=== PATIENT | male | born 1955 | race Caucasian/White ===

== ENCOUNTER 2019-11-24 10:33 | Inpatient (IN) ==
[2019-11-24] MEDS ORDERED: XOPENEX NEB INH ONE (11:06)
[2019-11-24] MEDS ORDERED: PULMICORT INH ONE (11:06)
[2019-11-24] MEDS ORDERED: NS 1,000 ML IV ONE (11:07)
[2019-11-24] MEDS ORDERED: NS 1,000 ML ONE ×2 (11:11→16:08)
[2019-11-24] MEDS ORDERED: NS NEB INH SCH (11:15)
--- NOTE | 2019-11-24 11:15 | PROVIDER DOCUMENTATION ---
HPI-Respiratory General - General Chief Complaint: B/P Problems Stated Complaint: SOB Time Seen by Provider: 11/24/19 11:01 Source: patient, family (daughter at bedside) Allergies/Adverse Reactions: Patient Allergies Allergy/AdvReac Type Severity Reaction Status Date / Time No Known Allergies Allergy Verified 11/24/19 11:26 - History of Present Illness-Resp Nature of Presenting Problem: 64 YO M pmh for COPD presents with c/o SOB x 1 week, worse in the last day, with associated low blood pressure. Pt states he normally drinks alcohol everyday but has not in the past week. He does not do breathing tx at home. He has not taken his BP meds in the past few days because of low BP. Quality of Pain: reports: none Onset/Duration: reports: 24 hours ago Timing: reports: still present, getting worse Context: denies: recent foreign travel Exposure: reports: unknown cause Similar Symptoms Previously?: Yes Recently seen or treated by another doctor?: No Review of Systems - Adult - REVIEW OF SYSTEMS - ADULT Constitutional: denies: chills, fever Eyes: reports: no symptoms reported Ears, Nose, Mouth & Throat: reports: no symptoms reported Cardiovascular: reports: poor circulation. denies: chest pain, edema, palpitations Respiratory: reports: shortness of breath. denies: pleurisy, wheezing Gastrointestinal: reports: no symptoms reported Genitourinary: reports: no symptoms reported Integumentary: reports: other (bruising) Neurological: reports: no symptoms reported Psychiatric: reports: no symptoms reported Past History - Adult - PAST MEDICAL HISTORY-ADULT Review of Records: reports: Old Records Reviewed Cardiovascular: reports: HTN Respiratory: reports: COPD Gastrointestinal: reports: denies history Genitourinary: reports: denies history - PRIOR SURGERIES/PROCEDURES Surgical/Procedure History: denies: recent surgery - FAMILY HISTORY Family History: reviewed, not pertinent - SOCIAL HISTORY Smoking: cigarettes Substance Use: alcohol Alcohol Use Frequency: every day Physical Exam-General - PHYSICAL EXAM-ADULT Initial Vital Signs Reviewed: Yes - CONSTITUTIONAL General Appearance: alert, moderate distress (respiratory distress) - EYES Eyes: scleral icterus - HEAD, EARS, NOSE, MOUTH & THROAT HENMT: other (dry mucous membranes) - NECK Neck: full range of motion, supple, normal inspection - RESPIRATORY Respiratory: respiratory distress. negative: crackles, rales, rhonchi, wheezing - CARDIOVASCULAR Cardiovascular: tachycardia - GASTROINTESTINAL (ABDOMEN) Abdominal Exam: soft - MUSCULOSKELETAL Back Exam: no CVA tenderness Extremity: no pedal edema, pelvis stable - SKIN Integumentary: ecchymosis (extensive) - NEUROLOGIC Neurologic: grossly normal - PSYCHIATRIC Psych/Mental Status: oriented x 3 - HEART Score HEART Score: History: Slightly Suspicious HEART Score: ECG: Normal HEART Score: Age: 45-65 Years HEART Score: Risk Factors for Atherosclerotic Disease: 1 or 2 Risk Factors HEART Score: Troponin: < or = Normal Limit Total HEART Score:: 2 Progress - PLAN OF CARE/RESULTS Progress/Plan/Lab Results: Vital Signs - 8 hr 11/24/19 10:47 11/24/19 11:36 Temperature 97.8 F Pulse Rate 93 H 107 H Respiratory Rate 20 18 Blood Pressure 63/49 O2 Sat by Pulse Oximetry 100 97 11/24/19 12:26 Stool Occult Blood (AMBER) - Final Stool 11/24/19 11:53 Influenza Screen - Final Nasopharyngeal Laboratory Results - last 24 hr 11/24/19 11/24/19 11/24/19 11:03 11:03 11:03 WBC 11.51 H RBC 2.27 L Hgb 7.0 L Hct 22.0 L MCV 96.9 MCH 30.8 MCHC 31.8 L RDW Std Deviation 16.8 H Plt Count 452 H MPV 10.0 Immature Gran % (Auto) 0.3 Neut % (Auto) 64.9 Lymph % (Auto) 25.3 [place] % (Auto) 5.6 Eos % (Auto) 3.3 Baso % (Auto) 0.6 Immature Gran # (Auto) 0.03 Neut # (Auto) 7.47 H Lymph # (Auto) 2.91 [place] # (Auto) 0.65 H Eos # (Auto) 0.38 Baso # (Auto) 0.07 PT 14.9 INR 1.15 PTT (Actin FS) 32.0 D-Dimer, Quantitative Sodium Potassium Chloride Carbon Dioxide Anion Gap BUN Creatinine Estimated GFR/1.73 m2 BUN/Creatinine Ratio Glucose Calculated Osmolality Calcium Magnesium Total Bilirubin AST ALT Alkaline Phosphatase Troponin T High Sens Dnk-V-Eyvafmlsvxy Pept 269 H Total Protein Albumin Globulin Albumin/Globulin Ratio TSH 11/24/19 11/24/19 11/24/19 11:03 11:03 11:03 WBC RBC Hgb Hct MCV MCH MCHC RDW Std Deviation Plt Count MPV Immature Gran % (Auto) Neut % (Auto) Lymph % (Auto) [place] % (Auto) Eos % (Auto) Baso % (Auto) Immature Gran # (Auto) Neut # (Auto) Lymph # (Auto) [place] # (Auto) Eos # (Auto) Baso # (Auto) PT INR PTT (Actin FS) D-Dimer, Quantitative 1.97 H Sodium 127 L Potassium 4.7 Chloride 94 L Carbon Dioxide 13 L Anion Gap 20 BUN 19 Creatinine 1.1 Estimated GFR/1.73 m2 > 60 BUN/Creatinine Ratio 17 Glucose 119 H Calculated Osmolality 259 Calcium 8.7 L Magnesium Total Bilirubin 1.59 H AST 9 L ALT < 5 L Alkaline Phosphatase 84 Troponin T High Sens 15 Nxq-A-Ibeczsrginw Pept Total Protein 5.7 L Albumin 3.1 L Globulin 2.6 Albumin/Globulin Ratio 1.2 TSH 11/24/19 11/24/19 11:03 11:03 WBC RBC Hgb Hct MCV MCH MCHC RDW Std Deviation Plt Count MPV Immature Gran % (Auto) Neut % (Auto) Lymph % (Auto) [place] % (Auto) Eos % (Auto) Baso % (Auto) Immature Gran # (Auto) Neut # (Auto) Lymph # (Auto) [place] # (Auto) Eos # (Auto) Baso # (Auto) PT INR PTT (Actin FS) D-Dimer, Quantitative Sodium Potassium Chloride Carbon Dioxide Anion Gap BUN Creatinine Estimated GFR/1.73 m2 BUN/Creatinine Ratio Glucose Calculated Osmolality Calcium Magnesium 2.1 Total Bilirubin AST ALT Alkaline Phosphatase Troponin T High Sens Cpm-B-Cibckjwmqtx Pept Total Protein Albumin Globulin Albumin/Globulin Ratio TSH 1.36 Orders Category Date Time Status Cardiac Monitoring DIRECTED Care 11/24/19 11:08 Active Saline Loc NOW Care 11/24/19 11:07 Active CHEST-1 VIEW [RAD] Stat Exams 11/24/19 11:15 Completed CBC WITH ELECTRONIC DIFF [HEME] Stat Lab 11/24/19 11:03 Completed COMPREHENSIVE METABOLIC PANEL [CHEM] Stat Lab 11/24/19 11:03 Completed D-DIMER [COAG] Stat Lab 11/24/19 11:03 Completed INFLUENZA SCREEN A/B Stat Lab 11/24/19 11:53 Completed MAGNESIUM [CHEM] Stat Lab 11/24/19 11:03 Completed OCCULT BLOOD SCREENING [STOOL] Stat Lab 11/24/19 12:26 Completed PRBC [LRPC (RED CELLS)] [BBK] Stat Lab 11/24/19 13:09 Uncollected PRO B-NATRIURETIC PEPTIDE Stat Lab 11/24/19 11:03 Completed PROTIME WITH INR [COAG] Stat Lab 11/24/19 11:03 Completed PTT [COAG] Stat Lab 11/24/19 11:03 Completed TROPONIN T HIGH SENSITIVITY Stat Lab 11/24/19 11:03 Completed TSH Stat Lab 11/24/19 11:03 Completed TYPE & SCREEN [BBK] Stat Lab 11/24/19 11:03 Received URINALYSIS W/POSS RFLX CULT [URINALYSIS] Stat Lab 11/24/19 11:07 Uncollected 0.9% Sodium Chloride Inj [Ns] 1,000 ml Med 11/24/19 11:11 Discontinued .ROUTE As directed 0.9% Sodium Chloride Inj [Ns] 1,000 ml Med 11/24/19 11:07 Discontinued IV 999 mls/hr Budesonide [Pulmicort] Med 11/24/19 11:06 Discontinued 0.5 mg INH NOW ONE Levalbuterol Neb [Xopenex Neb] Med 11/24/19 11:06 Discontinued 1.25 mg INH NOW ONE Nicotine Patch [Nicoderm Patch] Med 11/24/19 12:57 Discontinued 21 mg TD NOW ONE Sodium Chloride 0.9% Neb [Ns Neb] Med 11/24/19 11:15 Active 5 ml INH DIRECTED Aerosol Treatments Routine Oth 11/24/19 11:06 Completed Aerosol Treatments Stat Oth 11/24/19 11:06 Completed Oxygen Device Stat Oth 11/24/19 11:08 Completed EKG [EKG] Stat Ther 11/24/19 11:07 Draft labs reviewed. pt with symptomatic anemia. no hx of low blood counts in the past, denies hematuria, hemoptysis, or melena. FOBT negative. will transfuse 1 unit PRBC and plan for admission for more workup of anemia. Pt understands and agrees with plan. He is concerned for his smoking habit. Will provide a nicotine patch. Result Diagrams: 11/24/19 11:03 11/24/19 11:03 - REASSESSMENT Reassessment #1 Time Reassessed: 11:11 Status: other (repeat BP on exam at 100s/70s.) - EKG 1 Time of EKG reading by physician:: 11:25 EKG Read and Signed by:: Simin Cortes EKG Interpretation (*Must complete 3 of following elements*): Normal Rate: 65 Rhythm: NSR [place]: normal QRS: normal [place] Interval: normal ST Wave: normal Prior EKG Comparison: no prior EKG - XRAY 1 XRAY Study: Chest Impression: Normal (CHEST-1 VIEW - 11/24/2019 INDICATION: SOB COMPARISON: 02/06/2019 FINDINGS: The lungs are normally expanded and clear. Heart size and mediastinal contours are normal. No pneumothorax or pleural effusion. IMPRESSION: Negative exam. Electronically signed by Tr Jones 11/24/2019 11:38 AM) - CONSULTS/PCP/HOSPITALIST Notification #1 *Consult/PCP/Hospitalist*: spoke with Sherry Time Discussed: 12:57 Consult Disposition: Admit Departure - Departure Date of Disposition Decision: 11/24/19 Time of Disposition Decision: 11:57 DIAGNOSIS: Anemia Disposition: ADMITTED INPATIENT 09 Certified Medical Emergency: Emergent Condition: Stable Referrals and Follow-Ups: Unruly Issa MD [Primary Care Provider] - - Critical Care Note This patient required my direct & personal management of CC.: No Attestation - Physician/ PEGGY Attestation Patient care was provided by Advanced Practice Provider:: No The physician spent face to face time with patient:: Yes Advanced Practice Provider documentation review:: Supervising physician onsite and consulted in the evaluation and care of this patient. The physician did have a face to face encounter with the patient.
--- NOTE | 2019-11-24 11:40 | Diag Imaging Result Doc PS360 ---
CHEST-1 VIEW - 11/24/2019 INDICATION: SOB COMPARISON: 02/06/2019 FINDINGS: The lungs are normally expanded and clear. Heart size and mediastinal contours are normal. No pneumothorax or pleural effusion. IMPRESSION: Negative exam. Electronically signed by Tr Jones 11/24/2019 11:38 AM
[2019-11-24 11:53] LABS: BASO# 0.07 X1000 (0.0-0.2); BASO% 0.6 % (0.0-0.8); EOS# 0.38 X1000 (0.0-0.7); EOS% 3.3 % (0.0-10.0); IMM GRAN# 0.03 X1000 (0.0-0.04); IMM GRAN% 0.3 % (0.0-0.5); LYMPH# 2.91 X1000 (1.2-3.4); LYMPH% 25.3 % (20.5-51.1); MCH 30.8 PG (27-31); MCHC 31.8 g/dL (33-37); MCV 96.9 FL (81-99); MONO# 0.65 X1000 (0.11-0.59); MONO% 5.6 % (1.7-9.3); NEUT# 7.47 X1000 (1.4-6.5); NEUT% 64.9 % (42.2-75.2); PLT 452 X1000 (130-400); RBC 2.27 XMIL (4.7-6.1); RDW 16.8 % (11.5-14.5); WBC 11.51 X1000 (4.8-10.8)
[2019-11-24 11:54] LABS: INR 1.15; PROTIME 14.9 Seconds (11.0-16.0)
--- NOTE | 2019-11-24 11:57 | EKG Report ---
Test Performed on : 11/24/2019 11:25:37 AM Test Reason : CP Blood Pressure : / mmHG Vent. Rate : 065 BPM Atrial Rate : 065 BPM P-R Int : 146 ms QRS Dur : 074 ms QT Int : 426 ms P-R-T Axes : 067 041 047 degrees QTc Int : 443 ms Normal sinus rhythm. Normal ECG No previous ECGs available Unconfirmed Result
[2019-11-24 12:20] LABS: ESTIMATED GFR > 60
[2019-11-24 12:24] LABS: AGAP 20; ALB/GLOB RATIO 1.2; ALBUMIN 3.1 g/dL (3.5-5.0); ALKALINE PHOSPHATASE 84 U/L (32-122); BUN 19 mg/dL (8-22); CALCIUM 8.7 mg/dL (8.8-10.2); CHLORIDE 94 mmol/L (98-107); COSMO 259; CREATININE 1.1 mg/dL (0.7-1.2); GLUCOSE 119 mg/dL (70-104); GOT 9 U/L (10-34); GPT < 5 U/L (10-44); POTASSIUM 4.7 mmol/L (3.5-5.1); SODIUM 127 mmol/L (136-145); TCO2 13 mmol/L (25-35); TOTAL BILIRUBIN 1.59 mg/dL (0.20-1.00); TOTAL PROTEIN 5.7 g/dL (6.3-8.3)
[2019-11-24] MEDS ORDERED: NICODERM PATCH TD ONE (12:57)
[2019-11-24] MEDS ORDERED: DUONEB (A & A) INH PRN ×2 (14:38→14:42)
[2019-11-24] MEDS ORDERED: ZOFRAN IV PRN (14:38)
[2019-11-24] MEDS ORDERED: ATIVAN IV PRN (14:40)
[2019-11-24] MEDS ORDERED: SODIUM CHLORIDE 0.9% INJ SCH ×2 (14:45)
[2019-11-24] MEDS ORDERED: PROTONIX IV SCH (14:45)
[2019-11-24] MEDS: PROTONIX IV SCH (15:09)
[2019-11-24] MEDS: NS 1,000 ML IV SCH (16:11)
[2019-11-24 16:29] LABS: IRON SATURATION 13 %; TIBC 325 ug/dL; TOTAL IRON 41 ug/dL (53-167); UNBOUND IRON 284 ug/dL (112-346)
[2019-11-24 16:45] LABS: FERRITIN 213 ng/mL (30-400)
--- NOTE | 2019-11-24 17:22 | Diag Imaging Result Doc PS360 ---
EXAM: US ABDOMEN-COMPLETE INDICATION: liver cirrhosis suspected COMPARISON: None. FINDINGS: The gallbladder appears normal with no stones, wall thickening, or pericholecystic fluid. The common bile duct is normal in diameter. Sonographic Vidal's sign was reported to be negative. The liver is grossly unremarkable. Portal venous flow is hepatopetal. The visualized pancreas is unremarkable. The proximal aorta is obscured. The remainder of the aorta and the IVC are unremarkable. The spleen is unremarkable. There is a 2.7 cm right renal cyst with a thin internal septation. The kidneys are unremarkable, otherwise. IMPRESSION: Mildly complex right renal cyst. Unremarkable abdominal ultrasound, otherwise. Electronically signed by Vik Truong 11/24/2019 5:19 PM
--- NOTE | 2019-11-24 18:40 | HISTORY AND PHYSICAL ---
PRIMARY CARE PROVIDERS: Unruly Issa. CHIEF COMPLAINT: Cannot breathe. HPI: Mr. Owens is a 64-year-old male who carries a past medical history of hypertension, COPD, tobacco use 2 packs per day is denying any regular alcohol use however, ED report states that he normally drinks alcohol every day but he has not in the past week. He told me that he has not drank alcohol in 2 months and that he was not a regular alcohol drinker and he got a little agitated at questioning his drinking. He also reports bruising to the bilateral lower extremities. He reports no falls. Bilateral calf pain. Initial workup in the ED showed blood pressures of 63/49, an hemoglobin and hematocrit of 7 and 22, a D-dimer 1.97 and a sodium of 127. He is being admitted for symptomatic anemia. We will watch him for alcohol withdrawal closely. Currently pending CTA of the thorax, abdomen and pelvis as well as many other labs for his anemia and hyponatremia. Again his occult stools is negative. He denies any hematemesis, chest pain, fever, chills except for when he 1st wakes up in the morning he states that he breaks out in a cold sweat from his chest up. PAST MEDICAL HISTORY: COPD, hypertension, tobacco, alcohol use. He has had pneumonia this time every year for the past 5 years. PAST SURGICAL HISTORY: Knee surgery. SOCIAL HISTORY: He is retired environmental services project manager 2 years ago, 2 pack per day smoker. He denies that he is an everyday alcohol drinker. He adamantly denies that he is an alcoholic. He reports his last drink was 2 months ago however his ED report states that his last drink was a week ago and he was an everyday alcohol drinker. FAMILY HISTORY: Reviewed and noncontributory. REVIEW OF SYSTEMS: Twelve-point review of systems completely negative except for those mentioned in HPI. PHYSICAL EXAMINATION: VITAL SIGNS: Temperature is 97.8 degrees, heart rate 93, respiration 20, blood pressure 63/49, O2 is 100% on room air. GENERAL: Mr. Owens is a pleasant 64-year-old gentleman who is sitting up in the bed in no acute distress. HEENT: Atraumatic, normocephalic. PERRL. NECK: Supple. Trachea midline. CARDIOVASCULAR: S1, S2 appreciated. No murmurs, gallops, rubs noted. RESPIRATORY: Lung sounds clear bilaterally. No rales, rhonchi or wheezes noted. ABDOMEN: Soft, nontender, nondistended. Positive bowel sounds 4 quads. Lower extremities negative for edema. SKIN: Warm and dry. He does have some scabs to his forearms. He also has various bruises scattered throughout his lower extremities. He reports no falls or injuries at home. NEURO: He is awake, he is alert, he is oriented. He answered all questions appropriately. DIAGNOSTIC DATA: Chest x-ray negative exam. EKG normal sinus rhythm. LABORATORY DATA: White count 11, hemoglobin and hematocrit 7 and 22, platelet count is 452,000, PTT 14, INR 1, PTT 32. D-dimer 1.97. Sodium 127, potassium 4.7, anion gap of 20, BUN 19, creatinine 1.1, blood glucose is 119, magnesium is 2.1, albumin 3.1. ASSESSMENT AND PLAN: 1. Symptomatic anemia currently running anemia profile, will treat accordingly, pending abdominal and thorax abdomen and pelvis CT. Occult stool was negative. He adamantly denies any hematemesis. He is getting 1 unit of packed red blood cells. Will keep a close eye on his hemoglobin and hematocrit, currently getting blood right now. 2. Mild hyponatremia, will do a hyponatremia workup. 3. Elevated D-dimer currently pending CTA of the chest, venous Dopplers, he did complain of some bilateral calf pain. 4. Hypotensive on arrival resolved with intravenous fluids and blood. 5. Alcohol use. Patient adamantly denied that he was an everyday alcohol drinker. He reports his last drink was 2 months ago however emergency department physician reports that he was an everyday alcohol drinker and his last drink was last week. We will watch him closely for any alcohol withdrawal or DTs. There was no family at bedside. He did get a little agitated when I was questioning him about his alcohol use. 6. Tobacco use and abuse. Patient is a 2 pack per day smoker. Continue with smoking cessation daily. 7. Chronic obstructive pulmonary disease not in exacerbation. Will continue with p.r.n. breathing treatments. 8. Hypertension initially hypotensive upon arrival, will hold his lisinopril for now. 9. Gastroesophageal reflux disease. We will continue with proton pump inhibitor. 10. Further recommendations to follow physician evaluation, pending laboratory and diagnostic data. Dictated by NGUYỄN Robertson for Ryan Obrien MD cc: Ryan Obrien MD [facility]
--- NOTE | 2019-11-24 19:10 | Diag Imaging Result Doc PS360 ---
EXAM: CT THORAX/ABD/PELVIS W/CON INDICATION: anemia, long standing smoker TECHNIQUE: This exam was performed using automated exposure control, adjustment of mA or kV according to patient size, and/or use of iterative reconstruction technique. COMPARISON: None. FINDINGS: CHEST: There is fairly advanced pulmonary emphysema with an apical predominance. There is minimal apical scarring on the left. There is trace dependent atelectasis bilaterally. The lungs are clear, otherwise. There is no pleural fluid collection and no pneumothorax. There is a calcified granuloma at the left lung base. There are calcified mediastinal lymph nodes indicating prior granulomatous disease. There is no evidence of significant mediastinal or hilar lymphadenopathy, otherwise. There is no cardiomegaly. There is no evidence of acute osseous abnormality involving the chest. ABDOMEN/PELVIS: There are calcified granulomata throughout the spleen. There is no splenomegaly. The gallbladder, liver, pancreas, and adrenal glands are unremarkable. There is a 3.2 cm cyst at the medial aspect of the right kidney with no associated enhancement. The kidneys are unremarkable, otherwise. The urinary bladder appears normal. There are prostatic calcifications. The prostate does not appear to be enlarged. There is very mild sigmoid colonic diverticulosis. There is no evidence of diverticulitis. The appendix is normal. There is no evidence of focal bowel wall thickening or bowel obstruction. The remainder of the GI tract is grossly unremarkable. No focal inflammatory changes, free abdominal gas, or free fluid is identified. There is aortoiliac atherosclerotic disease with subaneurysmal ectasia of the distal aorta measuring up to 2.6 cm in diameter. There is no significant abdominal or pelvic lymphadenopathy. There is no evidence of acute osseous abnormality. IMPRESSION: 1.Pulmonary emphysema. 2.Aortoiliac atherosclerotic disease with subaneurysmal ectasia of the distal aorta. 3.Other incidental/nonacute findings detailed above. No evidence of acute pathology involving the chest, abdomen, or pelvis. Electronically signed by Vik Truong 11/24/2019 7:08 PM
[2019-11-24 20:55] LABS: URINE SOURCE CLEAN CATCH
[2019-11-24] MEDS: FOLIC ACID PO SCH (21:00)
[2019-11-24 21:14] LABS: UR EPITHELIAL CELLS <10 /HPF (<10); URINE BACTERIA NEGATIVE /HPF; URINE RBC <10 /HPF (<10)
[2019-11-24 21:19] LABS: BILIRUBIN URINE NEGATIVE (NEGATIVE); BLOOD URINE TRACE (NEGATIVE); COLOR YELLOW; GLUCOSE URINE NEGATIVE (NEGATIVE); KETONE URINE 60 mg/dL (NEGATIVE); LEUKOCYTES URINE TRACE (NEGATIVE); NITRITE URINE NEGATIVE (NEGATIVE); PROTEIN URINE TRACE mg/dL (NEGATIVE); SP GRAVITY URINE 1.043; TURBIDITY URINE CLEAR (CLEAR); UROBILINOGEN URINE NORMAL (NORMAL)
[2019-11-24 21:23] LABS: HEMATOCRIT 23.7 % (42.0-52.0); HEMOGLOBIN 8.1 g/dL (14.0-18.0)
[2019-11-25] MEDS ORDERED: PNEUMOVAX 23 IM ONE (01:39)
[2019-11-25] MEDS: NS 1,000 ML IV SCH (01:51)
[2019-11-25] MEDS: PROTONIX IV SCH (02:04)
[2019-11-25] MEDS ORDERED: FLU VACCINE IM ONE (02:15)
[2019-11-25 02:22] LABS: HEMATOCRIT 24.7 % (42.0-52.0); HEMOGLOBIN 8.1 g/dL (14.0-18.0)
[2019-11-25 08:06] LABS: BASO# 0.01 X1000 (0.0-0.2); BASO% 0.2 % (0.0-0.8); EOS% 3.3 % (0.0-10.0); HEMATOCRIT 22.4 % (42.0-52.0); HEMOGLOBIN 7.4 g/dL (14.0-18.0); LYMPH# 1.28 X1000 (1.2-3.4); LYMPH% 21.3 % (20.5-51.1); MCV 93.7 FL (81-99); MONO# 0.38 X1000 (0.11-0.59); MONO% 6.3 % (1.7-9.3); MPV 9.9 FL (7.4-10.4); NEUT# 4.15 X1000 (1.4-6.5); NEUT% 68.9 % (42.2-75.2); PLT 349 X1000 (130-400); RBC 2.39 XMIL (4.7-6.1); RDW 16.2 % (11.5-14.5); WBC 6.02 X1000 (4.8-10.8)
[2019-11-25 08:21] LABS: RETIC% 5.53 % (0.8-2.1)
[2019-11-25 08:38] LABS: ESTIMATED GFR > 60
[2019-11-25 08:49] LABS: AGAP 15; ALBUMIN 2.7 g/dL (3.5-5.0); ALKALINE PHOSPHATASE 78 U/L (32-122); BUN 14 mg/dL (8-22); CALCIUM 8.4 mg/dL (8.8-10.2); CHLORIDE 98 mmol/L (98-107); COSMO 257; CREATININE 0.8 mg/dL (0.7-1.2); GLUCOSE 97 mg/dL (70-104); GOT 9 U/L (10-34); GPT < 5 U/L (10-44); POTASSIUM 4.2 mmol/L (3.5-5.1); SODIUM 128 mmol/L (136-145); TCO2 15 mmol/L (25-35); TOTAL BILIRUBIN 1.56 mg/dL (0.20-1.00); TOTAL PROTEIN 5.4 g/dL (6.3-8.3)
--- NOTE | 2019-11-25 09:20 | PROGRESS NOTE ---
DATE: 11/25/2019 SUBJECTIVE: Patient reports feeling better after 1 unit of blood transfused. Denies any fever or chills. OBJECTIVE: Vital Signs: Temperature 97.6 degrees, heart rate 81, respiratory rate 20, blood pressure 122/77, O2 saturation 100% on 2 L nasal cannula. General: This is a chronically ill- looking and disheveled 64-year-old male lying in bed in no acute distress. Cardiovascular: S1-S2 heard. No murmurs, gallops, or rubs. Regular rate and rhythm. Respiratory: Decreased breath sounds globally. No work of breathing. Not using accessory muscles. Abdomen: Soft. Nontender to palpation. Nondistended. Bowel sounds present. No organomegaly. Extremities: No clubbing, cyanosis, or edema. Peripheral pulses present in both legs. Neurological: Patient is alert and oriented x3. Moves 4 extremities. LABORATORY DATA: Hemoglobin was 7.4, but in the morning at 2 a.m. was 8.1. Sodium 128. Total bilirubin 1.56, iron 41. ASSESSMENT/PLAN: 1. Iron deficiency anemia. Patient has been transfused [address] of the thorax, abdomen and pelvis has been okay. No malignancy found. So at this point, we will consult Gastroenterology to see what else we can do for this patient. 2. Mild hyponatremia. Workup in progress. Will continue to monitor. 3. Alcohol use. Patient reports that he has not drank for the last month. He does not look to be in any alcohol withdrawal. We will continue to monitor. 4. Tobacco use and abuse. Patient has been advised to stop smoking and he has a nicotine patch. 5. Chronic obstructive pulmonary disease. Patient is not in an exacerbation. We will provide breathing treatments only. 6. Disposition: At this point, we will follow the lead from GI. cc: Ryan Obrien MD [facility]ITALHardik
[2019-11-25] MEDS: FOLIC ACID PO SCH (10:23)
--- NOTE | 2019-11-25 11:19 | DISCHARGE SUMMARY ---
ADMISSION DATE: 11/24/2019 DISCHARGE DATE: 11/25/2019 DISCHARGE DIAGNOSES: 1. Iron-deficiency anemia, improved. 2. Mild hyponatremia. 3. Suspected chronic obstructive pulmonary disease. 4. Tobacco use and abuse. 5. Hypertension. CONSULTATIONS: Dr. Sebas Huertas from GI. PROCEDURES: 1. CT of chest, abdomen, and pelvis showed pulmonary emphysema, aortoiliac atherosclerotic disease with subaneurysmal ectasia of the distal aorta. 2. Abdominal ultrasound showed mild complex renal cyst, but unremarkable abdominal ultrasound otherwise. HOSPITAL COURSE: This patient is a 64-year-old, male with past medical history of hypertension, nondiagnosed COPD, tobacco use of 5 packs per day for many years, and he is using 1 pack during the last year, who presents to the emergency department complaining of feeling weak, general weakness. We found out that this patient has a hemoglobin of 7.0, so he was admitted to the hospital for further evaluation and treatment. For this very heavy tobacco abuse and hyponatremia, suspect lung malignancy, so we ordered a CT of chest, abdomen, and pelvis with the results as above. We transfused 1 unit of blood. We have consulted GI, and they think that this patient is stable, and he can be seen in the office for endoscopy and colonoscopy as an outpatient, so in that regard, what I am going to do is to discharge this patient. Will follow up with GI. The patient reports mild shortness of breath episodically, so will provide breathing treatments. He has been recommended to go and see his primary care to obtain a referral for a Pulmonary consultation because most likely, he may have COPD considering his very heavy history of smoking. At this point, the patient is going to be discharged in stable condition. DISCHARGE PHYSICAL EXAMINATION: Vital Signs: Temperature 97.6 degrees, heart rate 81, respiratory rate 20, blood pressure 122/77, O2 saturation 100% on room air. General: This is a disheveled, 64-year-old, male, lying in bed in no acute distress. Cardiovascular: S1, S2 heard. No murmurs, gallops, or rubs. Regular rate and rhythm. Respiratory: Decreased breath sounds globally. The patient is not using any accessory muscles or having work of breathing. Abdomen: Soft, nontender to palpation. Bowel sounds present. No organomegaly. Extremities: No clubbing, cyanosis, or edema. Peripheral pulses present in both legs. Neurological: The patient is alert and oriented x3. Moves all 4 extremities. DISCHARGE DISPOSITION: Home to self-care. FOLLOWUP: Dr. Huertas. He is to call the office in 1 to 2 weeks to schedule an appointment for endoscopy and colonoscopy. MEDICATIONS: 1. Folic acid 1 tablet p.o. twice daily. 2. Icar C 1 tablet p.o. twice daily. 3. ProAir 2 puffs by inhalation every 4 hours as needed. 4. Lisinopril 20 mg 1 tablet p.o. daily. cc: Ryan Obrien MD
--- NOTE | 2019-11-25 11:48 | GASTROENTEROLOGY CONSULTATION ---
DATE: 11/25/2019 REASON FOR CONSULTATION: Anemia of chronic disease. HISTORY OF PRESENT ILLNESS: Mr. Owens is 64-year-old male who presented to the hospital yesterday with complaints of shortness of breath and difficulty breathing. He mentioned that it has been going on for the last 1 week onward, but yesterday it started getting worse. He has denied any fever, chills, nausea, vomiting, or abdominal pain. He does have regular bowel movements and he has denied noticing any blood in his stools. The patient does have a history of hypertension, COPD, GERD. He smokes 2 packs of cigarettes a day, which in the past he used to smoke 5 packs of cigarettes. He consumes marijuana every day and alcohol on an occasional basis. The patient has mentioned that his appetite is good and has denied losing any weight. He did c/o of leg pain in the calf areas bilaterally and also has some bruising in his lower extremities. The patient's chest x-ray on admission has shown a negative exam and his chest, abdomen and pelvis CT on admission showed that he has pulmonary emphysema, aortoiliac atherosclerotic disease with subaneurysmal ectasia of the distal aorta. His abdominal ultrasound showed mildly complex right renal cyst, otherwise unremarkable abdominal ultrasound. PAST MEDICAL HISTORY: COPD, hypertension, GERD, tobacco abuse, alcohol abuse, marijuana abuse. PAST SURGICAL HISTORY: Left knee surgery, left hip surgery. ALLERGIES: No known drug allergies. FAMILY HISTORY: Dad had lung cancer and mom had dementia. SOCIAL HISTORY: The patient is a , has 5 kids. Smokes 2 packs of cigarettes daily, consumes alcohol on an occasional basis and smokes marijuana, 2 joints every day. HOME MEDICATIONS: Lisinopril 20 mg p.o. daily and OTC prilosec. REVIEW OF SYSTEMS: As per HPI. Otherwise, 12 point review of system is negative. PHYSICAL EXAMINATION: Vital Signs: Temperature 97.6 degrees, pulse 81, respirations 20, blood pressure 122/77, oxygen saturation 100% on 1 L nasal cannula. His weight is 141 pounds, BMI is 22.8 kg/m. General: He is alert, oriented x3. Answering questions appropriately and in no acute distress. HEENT: Pale conjunctivae. No icterus. PERRL. Neck: Supple. Lungs: Decreased breath sounds heard in the anterior lobes. Cardiovascular: Regular rate and rhythm. Abdomen: Soft, nontender, nondistended. Active bowel sounds heard in all 4 quadrants. Extremities: No clubbing, no cyanosis. Generalized edema in the lower extremities with bruises. Pedal pulses 2+ present bilaterally. Neurologic: He is alert, orient x3. Nonfocal. Cranial nerves 2- 12 grossly intact. LABORATORY DATA: WBC 6.02, RBC 2.39, hemoglobin 7.4, hematocrit 22.4, platelet count is 349,000. Sodium 128, potassium 4.2, chloride 97, carbon dioxide 15, anion gap 15, BUN 14, creatinine 0.8, glucose is 97, calcium 8.4. Magnesium 2.0. Total bilirubin 1.56, AST 9, ALT less than 5, alkaline phosphatase 78, albumin is 2.7. Urinalysis yesterday showed trace of protein, trace of blood, trace of leukocytes. The occult blood was negative. His urine culture has shown no growth. IMAGING: Abdominal ultrasound has shown mild complex right renal cyst. Chest, abdomen and pelvis CT has shown pulmonary emphysema, aortoiliac atherosclerotic diseas with subaneurysmal ectasia of the distal aorta. Chest x-ray has shown a negative exam. IMPRESSION AND PLAN: 1. Folate deficiency anemia 2. Hyponatremia. 3. Chronic obstructive pulmonary disease. 4. Hypertension. 5. Gastroesophageal reflux disease, 6. Alcohol abuse, 7. Tobacco abuse 8. Marijuana abuse. PLAN: Mr. Owens is a 64-year-old male with the history of tobacco, marijuana and alcohol abuse, GI has been consulted for anemia of chronic disease. The patient's hemoglobin and hematocrit today is 7.4 and 22.4. He has so far received 1 unit of blood. The patient has denied noticing any blood in his stools, blood in his vomit or losing any blood. The patient has discharge orders to go home today. We plan to do an EGD and colonoscopy as an outpatient. We will follow him up as an outpatient in 3 to 4 weeks after he is discharged. We have discussed this with the patient and he has agreed with the plan of care. This plan was discussed with Dr. Huertas. Please call us for any further questions or concerns. Dictated by NGUYỄN Green for Sebas Huertas MD Physician Attestation I have seen and examined the patient. I have discussed and reviewed the note by Lindsay ADRIAN and agree with findings and plan as documented. In brief, Mr. Michael Owens is a 64 year old man with HTN, COPD, tobacco use, alcoholism, marijuana abuse, and GERD who presented with SOB found to have severe folate deficiency anemia and hyponatremia. PanCT was negative for malignancy. FOBT and iron studies were normal. He denies any GI symptoms or weight loss. Will plan outpatient EGD/colonoscopy as outpatient. MTDD
[2019-11-25 12:59] VITALS: BP 119/73
--- NOTE | 2019-11-26 19:35 | Extremity Venous Study ---
PROCEDURE NAME: Venous U/S Bilateral Legs - 11/24/2019 STUDY: This is the bilateral lower extremity venous duplex, and color flow imaging study using the GE vivid E9 ultrasound System with a 9L-D transducer. REFERRING PHYSICIAN: Sundar. IDENTIFICATION: A 64-year-old male. SUPERVISOR PASTE MIXING: Shana Velez RVT. INDICATIONS: Pain, edema and bruising involving both lower extremities. Rule out deep venous thrombosis. FINDINGS: Right common femoral vein, its branches, deep and superficial femoral veins were satisfactorily imaged. They had flow through them and were compressible. Right popliteal vein and the deep veins below the right knee were all compressible and had flow through them. The superficial veins of the right lower extremity were compressible throughout their length. The left common femoral vein and its branches, deep and superficial femoral veins were also satisfactorily imaged. They had flow through them and were compressible. Left popliteal vein and the deep veins below the left knee were all compressible and had flow through them. The superficial veins the left lower extremity were compressible throughout their length. INTERPRETATION: No evidence of acute deep or superficial venous thrombosis of the bilateral lower extremities. cc: Sharon Howe MD
== END 2019-11-25 15:33 | disposition home or self-care (01) | DRG 812 ==
LOC: ED 10:33 → EDIPHOLD 14:24 → 4N 11-25 01:00
PROVIDERS: ATTEND Internal Medicine